=== PATIENT | female | born 1975 | race Caucasian/White ===

== ENCOUNTER 2021-05-05 07:03 | Day surgery (SDC) | payer OTHER ==
[~2021-05-05 07:03] MED LIST: Cyanocobalamin (Vitamin B12) 1,000 MCG/ML SDV IM ONE; Lactated Ringers 1,000 ML IV SCH
[2021-05-05] MEDS ORDERED: Glycopyrrolate 0.2 MG/ML 2 ML SDV IVPUSH ONE (08:00)
[2021-05-05] MEDS ORDERED: MVI, Adult with Vitamin K 10 ML, Thiamine 200 MG, Chromium/Copper/Mang/Selen/Zn 1 ML in... IV ONE ×4 (08:00)
[2021-05-05] MEDS ORDERED: Midazolam 1 MG/ML 2 ML SDV ONE (08:07)
[2021-05-05] MEDS ORDERED: fentaNYL 100 MCG/2 ML SDV ONE (08:07)
[2021-05-05] MEDS ORDERED: Propofol 200 MG/20 ML SDV ONE (08:07)
--- NOTE | 2021-05-06 22:52 | OR ---
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 POSTOPERATIVE DIAGNOSES: Weight regain status post Chacha-en-Y gastric bypass associated with: 1. Large gastric pouch and gastrojejunostomy. 2. Gastrogastric fistula. PROCEDURE PERFORMED: Upper gastrointestinal endoscopy with biopsies of gastric pouch for CLOtest. ANESTHESIA: IV sedation. INDICATIONS FOR PROCEDURE: A 46-year-old female status post Chacha-en-Y gastric bypass in [place] in 2009. She presents now after having initially very good weight loss with significant weight regain over the past 2 to 3 years and is undergoing upper endoscopy for evaluation of the anatomy to determine whether it is a correctable anatomic defect. The plan is to proceed with upper GI endoscopy with biopsies as indicated. Potential risks including bleeding and perforation were discussed, and the patient wishes to proceed. DETAILS OF PROCEDURE: The patient was taken to the operating room and placed in a left lateral decubitus position. IV sedation was administered after which the upper GI endoscope was passed orally through the length of the esophagus, through the gastric pouch and gastrojejunostomy roughly 20 cm into the Chacha limb. Findings included normal hypopharynx, larynx, upper esophageal sphincter, and esophageal body. At the EG junction, gastrojejunostomy was noted to be strikingly widened, likewise the pouch was quite large, pouch measuring 9 cm between the gastrojejunostomy and gastroesophageal junction, and the gastrojejunostomy was roughly 5 cm in diameter. 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 The scope could not quite be passed through that area. There was some redness around that area consistent with some obvious bile reflux through the fistula. Biopsies were obtained from the pouch and sent for CLOtest for H pylori. No bleeding from the biopsy sites was seen and the procedure then concluded. Based on the above findings, the patient would appear to be a good candidate for a revision of the procedure. This most likely could be done laparoscopically, but given the posterior entry of the fistula, an open approach might become necessary. We will obtain prior authorization for this procedure with the insurance company. Zak Moreno MD Job #: [id number]
== END 2021-05-05 11:05 | disposition home or self-care (01) ==
LOC: JP.SDS 07:03
PROVIDERS: ATTEND Surgery
DX: K95.89 Other complications of other bariatric procedure (principal); K31.6 Fistula of stomach and duodenum; G47.33 Obstructive sleep apnea (adult) (pediatric); I10 Essential (primary) hypertension; E66.9 Obesity, unspecified; Z91.040 Latex allergy status; Z01.812 Encounter for preprocedural laboratory examination; Z20.822 Contact with and (suspected) exposure to COVID-19; Z98.84 Bariatric surgery status; J45.909 Unspecified asthma, uncomplicated
CPT/HCPCS: 43239; 87081; 87635; J2250; J2704; J3010; J3411; J3420; J3490; J7120; U0002